=== PATIENT | male | born 1970 ===

== ENCOUNTER 2017-03-23 22:53 | Emergency (ER) | payer SELFPAY ==
[2017-03-23 23:00] VITALS: BP 163/99; PULSE 115; RESP 16; TEMP 98.9; O2SAT 100
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
[2017-03-24 00:41] LABS: HEMATOCRIT 34.5 % (35.0-51.0); MEAN CELL VOLUME 97.7 fl (80.0-94.0); MEAN CORPUSCULAR HEMOGLOBIN 32.2 pg (27.0-31.0); RED CELL DISTRIBUTION WIDTH 13.5 % (11.5-14.5); WHITE BLOOD COUNT 7.5 K/uL (4.8-10.8)
[2017-03-24 00:50] LABS: RBC URINE 3 /hpf (0-3); URINE BILIRUBIN NEGATIVE (NEGATIVE); URINE BLOOD NEGATIVE (NEGATIVE); URINE COLOR AMBER (YELLOW); URINE GLUCOSE (UA) NEG (Normal); URINE KETONE NEGATIVE (NEGATIVE); URINE LEUKOCYTE ESTERASE NEG Leu/uL (Negative); URINE PROTEIN 100 mg/dL (NEGATIVE); WBC URINE 4 /hpf (0-5)
[2017-03-24 00:54] LABS: ALB/GLOB RATIO 0.8 (1.0-2.1); ALKALINE PHOSPHATASE 122 U/L (38-126); ALT/SGPT 28 U/L (21-72); AST/SGOT 72 U/L (17-59); BILIRUBIN,TOTAL 0.5 mg/dl (0.2-1.3); BLOOD UREA NITROGEN 16 mg/dl (9-20); CARBON DIOXIDE 23 mmol/L (22-30); CHLORIDE 102 mmol/L (98-107); GFR AFRICAN-AMERICAN > 60; GLUCOSE,RANDOM 106 mg/dL (75-110); POTASSIUM 3.7 MMOL/L (3.6-5.0); SODIUM 140 mmol/l (132-148); TOTAL PROTEIN 9.8 G/DL (6.3-8.2)
--- NOTE | 2017-03-24 08:00 | RAD ---
PROCEDURE: Radiographs of the Lumbar Spine. HISTORY: back pain fall 2 weeks ago COMPARISON: No prior. FINDINGS: BONES: Normal alignment. No listhesis. No fracture. DISC SPACES: Unremarkable. OTHER FINDINGS: None. IMPRESSION: Unremarkable radiographs of the lumbar spine.
== END 2017-03-24 02:29 | disposition home or self-care (01) ==
LOC: H.ER 22:53
DX: M54.9 Dorsalgia, unspecified (principal)
CPT/HCPCS: 72100; 80053; 81003; 85027; 87086; 96374; G0480; J1885